=== PATIENT | male | born 1960 | race Caucasian/White ===

== ENCOUNTER → 2017-02-22 | Outpatient (CLI) | payer OTHER ==
[2017-02-22 21:19] LABS: BASO # 0.1 K/mm3 (0.0-0.2); BASO % 0.6 % (0.0-1.0); EOS # 0.3 K/mm3 (0.0-0.50); EOS % 2.9 % (0.0-3.0); LARGE UNSTAINED CELL # 0.2 K/mm3 (0.0-0.4); LARGE UNSTAINED CELL % 1.8 % (0.0-4.0); LYMPH # 1.5 K/mm3 (1.5-4.5); LYMPH % 13.6 % (24.0-44.0); MEAN CORPUSCULAR HEMOGLOBIN 31.1 pg (27.0-33.0); MEAN CORPUSCULAR HGB CONC 34.4 g/dl (32.0-36.5); MEAN CORPUSCULAR VOLUME 90.5 fl (80.0-96.0); MONO # 0.7 K/mm3 (0.0-0.8); MONO % 5.8 % (0.0-5.0); NEUTROPHILS # 8.5 K/mm3 (1.8-7.7); NEUTROPHILS % 75.3 % (36.0-66.0); PLATELET COUNT, AUTOMATED 319 k/mm3 (150-450); RED CELL DISTRIBUTION WIDTH 12.8 % (11.5-14.5); WHITE BLOOD COUNT 11.2 K/mm3 (4.0-10.0)
[2017-02-22 21:39] LABS: ERYTHROCYTE SEDIMENTATION RATE 15 mm/hr (0-20)
[2017-02-22 21:44] LABS: ALBUMIN 4.1 GM/DL (3.2-5.2); ALBUMIN/GLOBULIN RATIO 1.24 (1.00-1.93); ALKALINE PHOSPHATASE 71 U/L (45-117); ALT/SGPT 26 U/L (12-78); ANION GAP 10 MEQ/L (8-16); AST/SGOT 20 U/L (15-37); BILIRUBIN,TOTAL 1.4 MG/DL (0.2-1.0); BLOOD UREA NITROGEN 16 MG/DL (7-18); CALCIUM LEVEL 8.8 MG/DL (8.5-10.1); CARBON DIOXIDE LEVEL 29 MEQ/L (21-32); CHLORIDE LEVEL 100 MEQ/L (98-107); CREATININE FOR GFR 0.89 MG/DL (0.70-1.30); GLOMERULAR FILTRATION RATE > 60.0 (>56); GLUCOSE, FASTING 77 MG/DL (70-105); POTASSIUM SERUM 4.9 MEQ/L (3.5-5.1); SODIUM LEVEL 139 MEQ/L (136-145); TOTAL PROTEIN 7.4 GM/DL (6.4-8.2)
--- NOTE | 2017-02-23 04:35 | REP ---
Clinical: Pain. Technique: AP, lateral, bilateral oblique views of the right foot. Findings: Mild age-related changes are appreciated without overt osteoarthritic degenerative findings. No acute fracture dislocation. Surrounding soft tissues unremarkable. Impression: Age-related degenerative changes. Signed by Nick Macdonald MD 02/23/2017 04:27 A
[2017-02-25 00:06] LABS: Lyme Disease IgG/IgM Antibodie <0.91 ISR (0.00-0.90); Lyme Disease IgM Ab Quantitati <0.80 index (0.00-0.79)
== END ==
LOC: M ADAMS 17:37
PROVIDERS: ATTEND Physician Assistant
DX: M79.671 Pain in right foot (principal); R53.81 Other malaise; R53.83 Other fatigue

== ENCOUNTER 2018-12-08 12:16 | Observation (INO) | payer OTHER ==
[~2018-12-08] VITALS: Ht 185.4 cm; Wt 81.8 kg
[2018-12-08 12:58] LABS: BASO # 0.1 10^3/uL (0.0-0.2); BASO % 0.8 % (0.0-1.0); EOS # 0.1 10^3/uL (0.0-0.50); EOS % 0.7 % (0.0-3.0); HEMATOCRIT 44.9 % (42.0-52.0); HEMOGLOBIN 14.8 g/dl (13.5-17.5); LYMPH # 0.9 10^3/uL (1.5-4.5); LYMPH % 7.3 % (24.0-44.0); MONO # 0.9 10^3/uL (0.0-0.8); MONO % 6.9 % (0.0-5.0); NEUTROPHILS # 10.7 10^3/uL (1.8-7.7); NEUTROPHILS % 83.8 % (36.0-66.0); PLATELET COUNT, AUTOMATED 376 10^3/uL (150-450); WHITE BLOOD COUNT 12.8 10^3/uL (4.0-10.0)
[2018-12-08 13:33] LABS: ALBUMIN 3.6 GM/DL (3.2-5.2); ALT/SGPT 41 U/L (12-78); BILIRUBIN,DIRECT 0.3 MG/DL (0.0-0.2); BILIRUBIN,TOTAL 1.1 MG/DL (0.2-1.0); BLOOD UREA NITROGEN 9 MG/DL (7-18); CALCIUM LEVEL 8.9 MG/DL (8.5-10.1); CARBON DIOXIDE LEVEL 31 MEQ/L (21-32); CHLORIDE LEVEL 102 MEQ/L (98-107); CREATININE FOR GFR 0.89 MG/DL (0.70-1.30); GLOMERULAR FILTRATION RATE > 60.0 (>56); GLUCOSE, FASTING 95 MG/DL (70-100); LIPASE 88 U/L (73-393); SODIUM LEVEL 137 MEQ/L (136-145); TOTAL PROTEIN 8.2 GM/DL (6.4-8.2)
[2018-12-08] MEDS ORDERED: ISOVUE-370 76% 100ML VIAL (Q9967) As Ordered ONE (13:37)
[2018-12-08] MEDS ORDERED: AMPICILLIN SOD/SULBACTAM SOD 3 GM in D5W MINI-BAG PLUS 100 ML IV ONE (14:30)
[2018-12-08] MEDS ORDERED: IBUPOTC PO (14:42)
[2018-12-08] MEDS ORDERED: VITACHTA PO (14:42)
[2018-12-08] MEDS ORDERED: BUPIVACAINE/EPIN 0.25% 30 ML VIAL As Ordered ONE (15:58)
[2018-12-08] MEDS ORDERED: ERTAPENEM 1 GM INJ (INVanz) (J1335) As Ordered ONE (16:36)
[2018-12-08] MEDS ORDERED: NS 1,000 ML IV SCH (16:45)
[2018-12-08] MEDS ORDERED: ERTAPENEM SODIUM 1 GM in NS 50 ML IV ONE (17:00)
[2018-12-08] MEDS ORDERED: dexameTHASONE 4 MG/ML 1ML VIAL (J1100) As Ordered ONE (17:03)
[2018-12-08] MEDS ORDERED: HYDROmorphone HCL 2 MG/ML 1ML VIAL (J1170) As Ordered ONE (17:03)
[2018-12-08] MEDS ORDERED: LIDOCAINE 2% INJ 100 MG/5 ML SDV (FOR ANES.) As Ordered ONE (17:03)
[2018-12-08] MEDS ORDERED: PROPOFOL 200 MG/20 ML VIAL As Ordered ONE ×2 (17:03→18:04)
[2018-12-08] MEDS ORDERED: fentaNYL 100 MCG/2 ML INJECTION (J3010) As Ordered ONE (17:03)
[2018-12-08] MEDS ORDERED: ROCURONIUM BROMIDE 50 MG/5 ML VIAL As Ordered ONE ×2 (17:03→17:11)
[2018-12-08] MEDS ORDERED: MIDAZOLAM INJ 2 MG/2 ML VIAL (J2250) As Ordered ONE (17:03)
[2018-12-08] MEDS ORDERED: ONDANSETRON 4MG/2ML VIAL (J2405) As Ordered ONE (17:03)
[2018-12-08] MEDS ORDERED: PHENYLephrine HCL 500 MCG/5 ML (100MCG/ML) SYRINGE (J2370) As Ordered ONE (17:18)
[2018-12-08] MEDS ORDERED: SUGAMMADEX SODIUM 500 MG/5 ML VIAL (BRIDION) As Ordered ONE (17:20)
[2018-12-08] MEDS ORDERED: SUCCINYLCHOLINE 100 MG/5 ML SYRINGE (J0330) As Ordered ONE (17:20)
[2018-12-08] MEDS ORDERED: KETOROLAC 60 MG/2 ML VIAL (J1885) As Ordered ONE (17:29)
[2018-12-08] MEDS ORDERED: PROMETHAZINE INJ 25 MG/ML VIAL (J2550) IV PRN (18:45)
[2018-12-08] MEDS ORDERED: MORPHINE 4 MG/ML 1ML VIAL/SYRINGE (J2270) IV PRN ×2 (18:45)
[2018-12-08] MEDS ORDERED: NORCO, ANEXSIA 5/325MG TABLET (HYDROcodone/ACETAMINOPHEN) PO PRN ×3 (18:45)
[2018-12-08] MEDS ORDERED: ONDANSETRON 4MG/2ML VIAL (J2405) IV PRN ×2 (18:45)
[2018-12-08] MEDS ORDERED: ACETAMINOPHEN TAB 650MG DOSE (2X325MG) PO PRN (18:45)
[2018-12-08] MEDS ORDERED: fentaNYL 100 MCG/2 ML INJECTION (J3010) IV PRN (18:45)
[2018-12-08] MEDS ORDERED: LR 1,000 ML IV SCH (18:45)
[2018-12-08] MEDS ORDERED: METOCLOPRAMIDE INJ 10MG/2ML VIAL (J2765) IV PRN (18:45)
[2018-12-08 19:35] VITALS: BP 114/66
[2018-12-08 20:05] VITALS: BP 107/56
[2018-12-08 20:35] VITALS: BP 116/57
[2018-12-08] MEDS: IPRATROPIUM 0.5MG/ALBUTEROL 2.5MG INH SOL UD 3ML (DUONEB)(J7620) NEB SCH (20:37)
[2018-12-08 21:35] VITALS: BP 105/54
[2018-12-08 22:35] VITALS: BP 104/58
[2018-12-08] MEDS: NS 1,000 ML IV SCH (23:00)
[2018-12-08] MEDS: AMPICILLIN SOD/SULBACTAM SOD 3 GM in D5W MINI-BAG PLUS 100 ML IV SCH (23:45)
[2018-12-09 00:35] VITALS: BP 120/58
[2018-12-09] MEDS: KETOROLAC 30 MG/ML VIAL (J1885) IV SCH ×4 (00:49→17:47)
[2018-12-09 04:00] VITALS: BP 112/57
[2018-12-09] MEDS: AMPICILLIN SOD/SULBACTAM SOD 3 GM in D5W MINI-BAG PLUS 100 ML IV SCH ×4 (04:36→21:29)
--- NOTE | 2018-12-09 07:59 | REP ---
CT ABDOMEN AND PELVIS WITH IV CONTRAST: TECHNIQUE: Axial contrast enhanced images from the lung bases to the pubic symphysis using 100 mL Isovue 370 intravenous contrast material with multiplanar reformations. Visualized lung bases demonstrate no infiltrate. The liver, gallbladder, adrenals, and pancreas are unremarkable. There are calcified granulomas in the spleen. There is no hydronephrosis bilaterally. Small cyst is seen in each kidney. There is no abdominal aortic aneurysm. I do not see significant adenopathy. There is evidence of appendicitis with an appendicolith in the appendix measuring 1.5 cm in diameter. There is adjacent streaky inflammatory change in the surrounding fat. There appears to be a developing periappendiceal abscess adjacent to the appendicolith 1.6 cm in diameter. A small amount of localized free air is seen along the right colon. A small amount of free air is also seen beneath the left hemidiaphragm. There are several sigmoid diverticula present. The urinary bladder is mildly distended and grossly unremarkable. Metallic internal fixation is seen in the proximal right femur. IMPRESSION: Findings consistent with appendicitis. Appendicolith in the appendix measures 1.5 cm in diameter. There is adjacent local free air along the right colon, but there is also a small amount of free air beneath the left hemidiaphragm. I suspect a developing appendiceal abscess adjacent to the appendicolith, 1.6 cm in maximum diameter. FRANCISCO Andrea in the ER was informed of these findings at approximately 2:05 p.m., 12/08/2018. Electronically Signed by Gregorio Hudson MD 12/09/2018 10:34 P
[2018-12-09 08:00] VITALS: BP 104/59
[2018-12-09] MEDS: NS 1,000 ML IV SCH ×3 (08:13→17:46)
[2018-12-09] MEDS: IPRATROPIUM 0.5MG/ALBUTEROL 2.5MG INH SOL UD 3ML (DUONEB)(J7620) NEB SCH ×5 (11:35→20:32)
[2018-12-09 12:00] VITALS: BP 96/54
[2018-12-09 16:00] VITALS: BP 107/58
[2018-12-09 20:00] VITALS: BP_SYST 120; BP_SYST 99; BP_DIAS 52; BP_DIAS 58
[2018-12-10] VITALS: BP 97/51
[2018-12-10] MEDS: KETOROLAC 30 MG/ML VIAL (J1885) IV SCH ×3 (00:24→11:58)
[2018-12-10] MEDS: AMPICILLIN SOD/SULBACTAM SOD 3 GM in D5W MINI-BAG PLUS 100 ML IV SCH ×2 (03:38→08:06)
[2018-12-10] MEDS: NS 1,000 ML IV SCH (03:38)
[2018-12-10 04:00] VITALS: BP 103/55
[2018-12-10] MEDS: IPRATROPIUM 0.5MG/ALBUTEROL 2.5MG INH SOL UD 3ML (DUONEB)(J7620) NEB SCH ×2 (08:00→11:48)
[2018-12-10 08:04] VITALS: BP 105/52
[2018-12-10] MEDS ORDERED: AUGM500T34 PO (11:19)
--- NOTE | 2018-12-13 06:51 | RO ---
DATE OF PROCEDURE: 12/08/2018 PREOPERATIVE DIAGNOSIS: Acute appendicitis. POSTOPERATIVE DIAGNOSIS: Acute appendicitis. PROCEDURE: Laparoscopic appendectomy. SURGEON: Dr. Cornelius Junior ROCK CONTRACTOR: ANESTHESIA: General endotracheal anesthesia. ESTIMATED BLOOD LOSS: Minimal. FLUIDS: 25 mL of crystalloid. BRIEF PROCEDURE SUMMARY: The patient was brought to the operating room and was given general anesthesia. After adequate anesthesia and preoperative antibiotics were given, the patient was prepped and draped in the usual sterile fashion. Next, a supraumbilical incision was made with skin knife. Blunt dissection was carried down to fascia and Veress needle placed into the abdominal cavity and insufflated to 15 mm of pressure. A dilating 12 mm trocar was placed at this time and under direct visualization suprapubic and left lower quadrant 5 mm trocars were placed. There was a great deal of inflammation in the right lower quadrant and fatty tissue, etc. in the right lower quadrant and there was the appendix up against the right side of the abdominal wall, which had perforated and had an abscess cavity in this area. I entered the abscess cavity and eventually after some dissection I was able to find the mesentery of the appendix and follow this up towards the base of the appendix/cecal wall using the harmonic scalpel. There was some additional fat in this area that was coming from the small bowel and overlying the area that I took down and removed to make it easier to visualize the base the appendix. It was essentially very difficult and there was a perforation in the midportion of the appendix. I followed this more proximally, but it was so thick and so inflamed and fibrotic in this area. Eventually, I came to an area where the appendix appeared to be of normal caliber and less of a centimeter in size. It was more viable and essentially was within a centimeter of the cecal wall. I placed an Endoloop across the base of this and the appendix was transected. Also, I took an Endoclip box coverer hand and placed this across the appendix as well. The right lower quadrant was copiously irrigated after the appendix was taken in the EndoCatch bag and brought out through the umbilicus. The operative field was clean and dry. I did leave a drain in the operative field and brought it out through the 5 mm trocar site. Overall, the intra-abdominal area was nice and clean. No evidence of bleeding. No evidence of leak from the appendiceal stump. The trocars were removed all under direct visualization and #0 Vicryl was used close the fascia at the umbilicus and all incisions were closed with #4-0 Vicryl. Steri-Strips and a dry sterile dressing was applied. The patient was awakened, extubated and brought to the recovery room awake, alert, and hemodynamically stable. Sponge and needle counts were correct times two.
== END 2018-12-10 13:40 | disposition home or self-care (01) ==
LOC: M ED 12:16 → M ED INP 18:32 → M PED 19:30
PROVIDERS: ADMIT Surgery; ATTEND Surgery
DX: K35.890 Other acute appendicitis without perforation or gangrene (principal)
CPT/HCPCS: 44970; 74177; 80048; 80076; 81001; 83690; 85025; 88304; 94640; 96361; 96374; 96375; 96376; 99284; A6024; J0330; J1100; J1170; J1335; J1885; J2250; J2370; J2405; J3010; Q9967

== ENCOUNTER → 2018-12-08 | Outpatient (REF) | payer OTHER ==
[~2018-12-08] MED LIST: AUGM500T34 PO; IBUPOTC PO; VITACHTA PO
== END ==
LOC: M LAB REF 18:16
PROVIDERS: ATTEND Physician Assistant Medical
DX: R10.9 Unspecified abdominal pain (principal)

== ENCOUNTER → 2018-12-14 | Outpatient (CLI) | payer OTHER ==
[2018-12-14 18:59] LABS: BASO # 0.1 10^3/uL (0.0-0.2); BASO % 1.2 % (0.0-1.0); EOS # 0.5 10^3/uL (0.0-0.50); EOS % 4.9 % (0.0-3.0); HEMATOCRIT 45.7 % (42.0-52.0); HEMOGLOBIN 15.1 g/dl (13.5-17.5); LYMPH # 1.4 10^3/uL (1.5-4.5); LYMPH % 15.1 % (24.0-44.0); MEAN CORPUSCULAR HEMOGLOBIN 29.2 pg (27.0-33.0); MEAN CORPUSCULAR VOLUME 88.4 fl (80.0-96.0); MONO # 0.7 10^3/uL (0.0-0.8); MONO % 7.8 % (0.0-5.0); NEUTROPHILS # 6.4 10^3/uL (1.8-7.7); NEUTROPHILS % 69.8 % (36.0-66.0); PLATELET COUNT, AUTOMATED 541 10^3/uL (150-450); RED BLOOD COUNT 5.17 10^6/uL (4.30-6.10); WHITE BLOOD COUNT 9.1 10^3/uL (4.0-10.0)
== END ==
LOC: M LABDRWAD 13:07
PROVIDERS: ATTEND Physician Assistant
DX: R21 Rash and other nonspecific skin eruption (principal)

== ENCOUNTER → 2019-04-14 | Outpatient (CLI) | payer OTHER ==
--- NOTE | 2019-04-14 19:35 | REP ---
Left foot third toe four views: There is a comminuted fracture of the distal phalange. There is no dislocation. There is soft tissue edema. There is joint space narrowing of the PIP and DIP articulations. Electronically Signed by Gregorio Gale MD 04/14/2019 07:27 P
== END ==
LOC: M ADAMS 17:32
PROVIDERS: ATTEND Physician Assistant
DX: S92.535A Nondisplaced fracture of distal phalanx of left lesser toe(s), initial encounter for closed fracture (principal); X58.XXXA Exposure to other specified factors, initial encounter; Y92.89 Other specified places as the place of occurrence of the external cause

== ENCOUNTER → 2020-08-31 | Outpatient (CLI) | payer OTHER ==
--- NOTE | 2020-08-31 10:04 | REP ---
INDICATION: GB STONES AND KIDNEY STONE,UPPER ABDOMINAL PAIN FILE ROOM. COMPARISON: CT with contrast 12/08/2018 TECHNIQUE: Renal stone protocol with coronal and sagittal reconstructions. FINDINGS: CT abdomen lung bases without infiltrate or effusion. Minor dependent atelectatic change and a left lower lobe calcified granuloma noted. Heart is not enlarged no pericardial thickening or effusion or hiatal hernia. The liver, gallbladder and pancreas show no acute finding. There are calcifications in the spleen from old granulomatous disease. Adrenal glands are normal. Abdominal aorta no aneurysm. Periaortic, retroperitoneal or mesenteric pathologic sized adenopathy. Surgical clips from prior appendectomy noted in the right lower quadrant adjacent to the cecum. Kidneys show extrarenal pelves without hydronephrosis, stone, mass or definite cyst. No hydroureter or ureteral stone on either side. Small bowel loops are without dilatation or fluid levels no mesenteric inflammatory changes. Lung windows of no evidence of perforation or free air in the abdomen or pelvis. No abdominal ascites. Abdominal portion of colon without signs of colitis or diverticulitis there are just a few scattered diverticula. The bone windows show degenerative disc changes and vacuum phenomena at L4-5 and L3-4 with diffuse disc space narrowing but no compression fracture destructive lesions or posterior osteophytes at the L4-5 level. No acute compression deformities. There is no spondylolysis or spondylolisthesis. Visualized lower ribs were intact. CT pelvis sacrum, SI joints, pelvis and hips show some degenerative changes a threaded femoral nail and compression sideplate prior ORIF right hip. Degenerative changes are seen in both hips with small rim osteophytes and slight joint space narrowing. Bladder is only partially filled without mass there is an urachal remnant extending anteriorly and superiorly from the midline bladder as an anatomic variation.. Prostate enlarged, indents the bladder base. Multiple pelvic phleboliths. The distal left colon, sigmoid and rectum without acute finding with the small bowel loops in the pelvis unremarkable. No ventral or inguinal hernia nor pathologic sized inguinal adenopathy. IMPRESSION: *There is no renal, ureteral or bladder stone. No hydronephrosis or hydroureter on either side. * *No renal mass cyst or perinephric fluid. Status post appendectomy. * *Old granulomatous disease calcifications in the spleen and left lung base. * *Chronic degenerative changes in the spine pelvis and hips without any fracture or destructive lesions. * *No adenopathy, ascites, free air, diverticulitis or other acute finding <Electronically signed by Kenneth Vera > 08/31/20 [id number]
== END ==
LOC: M RAD 09:01
PROVIDERS: ATTEND Family Medicine
DX: R10.10 Upper abdominal pain, unspecified (principal); J84.10 Pulmonary fibrosis, unspecified; M51.37 Other intervertebral disc degeneration, lumbosacral region; K57.90 Diverticulosis of intestine, part unspecified, without perforation or abscess without bleeding; M17.0 Bilateral primary osteoarthritis of knee

== ENCOUNTER → 2020-10-08 | Outpatient (CLI) | payer OTHER | LOC: M LABSMTC 09:39 | PROVIDERS: ATTEND Anesthesiology | DX: Z01.812 Encounter for preprocedural laboratory examination (principal); Z20.828 Contact with and (suspected) exposure to other viral communicable diseases ==

== ENCOUNTER 2020-10-13 07:33 | Day surgery (SDC) | payer OTHER ==
[~2020-10-13] VITALS: Ht 185.4 cm; Wt 83.5 kg
[~2020-10-13 07:33] MED LIST changes: +NS 1,000 ML IV ONE
[2020-10-13] MEDS ORDERED: propofoL 200 MG/20 ML VIAL As Ordered ONE (07:43)
[2020-10-13] MEDS ORDERED: LIDOCAINE 2% 100MG/5ML SDV (FOR ANES.) As Ordered ONE (07:43)
--- NOTE | 2020-10-13 09:25 | ROOR ---
Patient Name: Edwin Moreno Procedure Date: 10/13/2020 9:04 AM Date of : 1960 Age: 60 Room: [facility] Gender: Male Note Status: Finalized Procedure: Total Colonoscopy to Cecum + ileoscopy Indications: Screening for colorectal malignant neoplasm Providers: Erickson Quintana MD Referring MD: Samuel Reilly MD Requesting Provider: Medicines: Monitored Anesthesia Care Complications: No immediate complications. Procedure: Pre-Anesthesia Assessment: - The heart rate, respiratory rate, oxygen saturations, blood pressure, adequacy of pulmonary ventilation, and response to care were monitored throughout the procedure. The Colonoscope was introduced through the anus and advanced to the cecum, identified by appendiceal orifice and ileocecal valve. The colonoscopy was performed without difficulty. The patient tolerated the procedure well. The quality of the bowel preparation was excellent. Findings: The perianal and digital rectal examinations were normal. Non-bleeding internal hemorrhoids were found during retroflexion. The hemorrhoids were small and Grade I (internal hemorrhoids that do not prolapse). Scattered small-mouthed diverticula were found in the recto-sigmoid colon, sigmoid colon and descending colon. The exam was otherwise without abnormality on direct and retroflexion views. The terminal ileum appeared normal. Impression: - Non-bleeding internal hemorrhoids. - Diverticulosis in the recto-sigmoid colon, in the sigmoid colon and in the descending colon. - The examination was otherwise normal on direct and retroflexion views. - The examined portion of the ileum was normal. - No specimens collected. - The exam was otherwise normal to the cecum. Recommendation: - Patient has a contact number available for emergencies. The signs and symptoms of potential delayed complications were discussed with the patient. Return to normal activities tomorrow. Written discharge instructions were provided to the patient. - Discharge patient to home. - Continue present medications. - Repeat colonoscopy in 10 years for screening purposes. - Return to referring physician. - The findings and recommendations were discussed with the patient. Procedure Code(s): --- Professional --- 27386, Colonoscopy, flexible; diagnostic, including collection of specimen(s) by brushing or washing, when performed (separate procedure) Diagnosis Code(s): --- Professional --- Z12.11, Encounter for screening for malignant neoplasm of colon K64.0, First degree hemorrhoids K57.30, Diverticulosis of large intestine without perforation or abscess without bleeding CPT copyright 2019 [employer]. All rights reserved. The codes documented in this report are preliminary and upon crane helper review may be revised to meet current compliance requirements. Erickson Quintana MD Erickson Quintana MD 10/13/2020 9:24:24 AM Electronically signed by Erickson Quintana MD Number of Addenda: 0 Note Initiated On: 10/13/2020 9:04 AM Estimated Blood Loss: Estimated blood loss: none.
[2020-10-13 09:45] VITALS: BP 115/57
== END 2020-10-13 09:57 | disposition home or self-care (01) ==
LOC: M SDC 07:33
PROVIDERS: ATTEND Internal Medicine Gastroenterology
DX: Z12.11 Encounter for screening for malignant neoplasm of colon (principal); K64.8 Other hemorrhoids; K57.30 Diverticulosis of large intestine without perforation or abscess without bleeding; R51.9 Headache, unspecified; R06.83 Snoring

== ENCOUNTER → 2021-09-12 | Outpatient (CLI) | payer OTHER ==
[~2021-09-12] MED LIST changes: -NS 1,000 ML IV ONE
== END ==
LOC: M WHC 13:42
PROVIDERS: ATTEND Family Medicine
DX: M85.80 Other specified disorders of bone density and structure, unspecified site (principal)

== ENCOUNTER → 2021-11-08 | Outpatient (CLI) | payer OTHER | LOC: M ADAMS 09:25 | PROVIDERS: ATTEND Physician Assistant Medical | DX: M25.522 Pain in left elbow (principal) ==

== ENCOUNTER → 2022-01-10 | Outpatient (REF) | payer OTHER ==
[2022-01-10 12:51] LABS: BASO # 0.1 10^3/uL (0.0-0.2); BASO % 1.3 % (0.0-1.0); EOS # 0.4 10^3/uL (0.0-0.5); EOS % 5.9 % (0.0-3.0); HEMATOCRIT 43.4 % (42.0-52.0); HEMOGLOBIN 14.5 g/dl (13.5-17.5); LYMPH # 1.2 10^3/uL (1.5-5.0); LYMPH % 18.8 % (24.0-44.0); MEAN CORPUSCULAR HEMOGLOBIN 29.4 pg (27.0-33.0); MEAN CORPUSCULAR HGB CONC 33.4 g/dl (32.0-36.5); MONO # 0.5 10^3/uL (0.0-0.8); MONO % 8.7 % (2.0-8.0); NEUTROPHILS % 64.8 % (36.0-66.0); PLATELET COUNT, AUTOMATED 317 10^3/uL (150-450); RED BLOOD COUNT 4.93 10^6/uL (4.30-6.10); WHITE BLOOD COUNT 6.1 10^3/uL (4.0-10.0)
[2022-01-10 13:15] LABS: ALT/SGPT 29 U/L (12-78); BILIRUBIN,TOTAL 1.1 MG/DL (0.2-1.0); BLOOD UREA NITROGEN 12 MG/DL (7-18); CALCIUM LEVEL 9.2 MG/DL (8.8-10.2); CARBON DIOXIDE LEVEL 32 MEQ/L (21-32); CHLORIDE LEVEL 108 MEQ/L (98-107); CREATININE FOR GFR 0.86 MG/DL (0.70-1.30); GLOMERULAR FILTRATION RATE > 60.0 (>49); GLUCOSE, FASTING 72 MG/DL (70-100); POTASSIUM SERUM 4.2 MEQ/L (3.5-5.1); RHEUMATOID FACTOR QUANT < 10.0 IU/ML (<15.0); SODIUM LEVEL 142 MEQ/L (136-145)
[2022-01-10 13:34] LABS: ERYTHROCYTE SEDIMENTATION RATE 18 mm/hr (0-20)
== END ==
LOC: M SFHCRHEU 10:40
PROVIDERS: ATTEND Internal Medicine Rheumatology
DX: L40.8 Other psoriasis (principal); M25.50 Pain in unspecified joint

== ENCOUNTER → 2022-02-15 | Outpatient (CLI) | payer OTHER | LOC: M PLAIMG 09:53 | PROVIDERS: ATTEND Internal Medicine Rheumatology | DX: L40.8 Other psoriasis (principal); M25.50 Pain in unspecified joint; R79.82 Elevated C-reactive protein (CRP); R76.8 Other specified abnormal immunological findings in serum; M25.78 Osteophyte, vertebrae; M25.871 Other specified joint disorders, right ankle and foot; M25.872 Other specified joint disorders, left ankle and foot; M85.88 Other specified disorders of bone density and structure, other site; M47.9 Spondylosis, unspecified ==

== ENCOUNTER → 2022-02-15 | Outpatient (REF) | payer OTHER ==
[2022-02-15 12:10] LABS: APPEARANCE, URINE CLEAR (CLEAR); BACTERIA, URINE AUTO NEGATIVE (NEGATIVE); BILIRUBIN, URINE AUTO NEGATIVE (NEGATIVE); BLOOD, URINE BLOOD NEGATIVE (NEGATIVE); COLOR, URINE COLORLESS (YELLOW); GLUCOSE, URINE (UA) AUTO NEGATIVE (NEGATIVE); KETONE, URINE AUTO NEGATIVE (NEGATIVE); LEUKOCYTE ESTERASE, URINE AUTO NEGATIVE (NEGATIVE); MUCUS, URINE SMALL (NEGATIVE); NITRITE, URINE AUTO NEGATIVE (NEGATIVE); PROTEIN, URINE AUTO NEGATIVE (NEGATIVE); RBC, URINE AUTO 0 /HPF (0-3); SPECIFIC GRAVITY URINE AUTO 1.004 (1.002-1.035); SQUAMOUS EPITHELIAL CELL UR AU 0 /HPF (0-6); UROBILINOGEN, URINE AUTO 0.2 mg/dL (0.0-2.0); WBC, URINE AUTO 0 /HPF (0-3)
[2022-02-15 12:28] LABS: CREATININE,RANDOM URINE 18.1 MG/DL; TOTAL PROTEIN,RANDOM URINE < 5.0 MG/DL (0.0-12.0)
[2022-02-15 12:40] LABS: C REACTIVE PROTEIN QUANTITATIV 1.15 MG/DL (0.00-0.30); IMMUNOGLOBULIN M 30.4 MG/DL (40-230); TOTAL PROTEIN 7.1 GM/DL (6.4-8.2)
== END ==
LOC: M SFHCRHEU 08:52
PROVIDERS: ATTEND Internal Medicine Rheumatology
DX: L40.8 Other psoriasis (principal); M25.50 Pain in unspecified joint; R79.82 Elevated C-reactive protein (CRP); R76.8 Other specified abnormal immunological findings in serum

== ENCOUNTER → 2023-09-24 | Outpatient (REF) | payer OTHER ==
[2023-09-24 13:56] LABS: BASO # 0.1 10^3/uL (0.0-0.2); BASO % 1.4 % (0.0-1.0); EOS # 0.3 10^3/uL (0.0-0.5); EOS % 4.2 % (0.0-3.0); HEMOGLOBIN 15.7 g/dl (13.5-17.5); LYMPH # 1.4 10^3/uL (1.5-5.0); LYMPH % 19.7 % (24.0-44.0); MEAN CORPUSCULAR HEMOGLOBIN 29.7 pg (27.0-33.0); MEAN CORPUSCULAR HGB CONC 32.7 g/dl (32.0-36.5); MEAN CORPUSCULAR VOLUME 90.7 fl (80.0-96.0); MONO # 0.5 10^3/uL (0.0-0.8); MONO % 6.4 % (2.0-8.0); NEUTROPHILS # 4.8 10^3/uL (1.5-8.5); NEUTROPHILS % 67.9 % (36.0-66.0); PLATELET COUNT, AUTOMATED 346 10^3/uL (150-450); RED BLOOD COUNT 5.29 10^6/uL (4.30-6.10); WHITE BLOOD COUNT 7.1 10^3/uL (4.0-10.0)
[2023-09-24 14:01] LABS: RHEUMATOID FACTOR QUANT < 3.5 IU/ML (<14)
[2023-09-24 14:02] LABS: ALBUMIN 3.8 G/DL (3.2-5.2); ALKALINE PHOSPHATASE 72 U/L (46-116); ALT/SGPT 22 U/L (7.0-40); AST/SGOT 21 U/L (<34); BLOOD UREA NITROGEN 17 MG/DL (9-23); CALCIUM LEVEL 9.3 MG/DL (8.3-10.6); CARBON DIOXIDE LEVEL 31 MMOL/L (20-31); CHLORIDE LEVEL 104 MMOL/L (98-107); CREATININE FOR GFR 0.85 MG/DL (0.70-1.30); GLOMERULAR FILTRATION RATE > 60.0 (>49); GLUCOSE, FASTING 81 MG/DL (74-106); POTASSIUM SERUM 4.9 MMOL/L (3.5-5.1); SODIUM LEVEL 139 MMOL/L (136-145); TOTAL PROTEIN 6.7 G/DL (5.7-8.2)
[2023-09-24 14:05] LABS: URIC ACID 5.7 MG/DL (3.7-9.2)
[2023-09-24 14:13] LABS: ERYTHROCYTE SEDIMENTATION RATE 19 mm/hr (0-20)
[2023-09-25 12:08] LABS: ANTINUCLEAR ANTIBODIES DIRECT Negative (Negative)
== END ==
LOC: M LABDRWAD 13:10
PROVIDERS: ATTEND Student in an Organized Health Care Education/Training Program
DX: M17.12 Unilateral primary osteoarthritis, left knee (principal)